=== PATIENT | male | born 1960 | race Caucasian/White ===

== ENCOUNTER 2020-11-22 12:12 | Emergency (ER) | payer OTHER ==
[~2020-11-22 12:12] MED LIST: Iopamidol-370 76% 500 ML 1 ML ONE
[2020-11-22 14:41] LABS: SARS-CoV-2 NAA Rapid Test Not Detected (NotDetected)
== END 2020-11-22 15:40 ==
LOC: ERS 12:12
DX: S02.2XXA Fracture of nasal bones, initial encounter for closed fracture (principal); S32.019A Unspecified fracture of first lumbar vertebra, initial encounter for closed fracture; S32.029A Unspecified fracture of second lumbar vertebra, initial encounter for closed fracture; S30.1XXA Contusion of abdominal wall, initial encounter; H11.32 Conjunctival hemorrhage, left eye; I10 Essential (primary) hypertension; J44.9 Chronic obstructive pulmonary disease, unspecified; Z79.899 Other long term (current) drug therapy; X58.XXXA Exposure to other specified factors, initial encounter
CPT/HCPCS: 0240U; 36415; 71260; 74177; 86850; 86900; 86901; Q9967